=== PATIENT | male | born 1985 | race American Indian/Alaskan Native ===

== ENCOUNTER 2017-07-07 01:22 | Emergency (ER) | payer OTHER ==
[2017-07-07 02:11] VITALS: BP 109/88
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
== END 2017-07-07 05:35 | disposition home or self-care (01) ==
LOC: ED 01:22
DX: R22.31 Localized swelling, mass and lump, right upper limb (principal)
CPT/HCPCS: 99283

== ENCOUNTER 2018-08-15 23:35 | Emergency (ER) | payer OTHER ==
[2018-08-15 23:48] VITALS: BP 138/84
[2018-08-16] MEDS ORDERED: PEPCID PO ONE (01:57)
[2018-08-16] MEDS ORDERED: BENADRYL PO ONE (01:57)
[2018-08-16] MEDS ORDERED: DELTASONE PO ONE (01:57)
--- NOTE | 2018-08-16 02:20 | Emergency Department Report ---
HPI - General Chief Complaint: Allergic Reaction Time Seen by Provider: 08/16/18 01:57 - HPI HPI: Patient is a 32-year-old -English male who presents for a reaction studies rash and bilateral upper extremities after abdominal exposure to bushes on 2 days ago subjective itching red raised papules present fever no chills no weeping noted at this time symptoms are exacerbated by scratching symptoms are relieved by scratching there is no broken skin or shortness of breath no wheezing no nausea vomiting no headache no lightheadedness no dizziness ED Past Medical Hx - Past Medical History Previous Medical History?: No - Surgical History Past Surgical History?: Yes Additional Surgical History: Right Rib removed and used in the bridge of his nose as a child - Social History Smoking Status: Never Smoker Substance Use Type: Marijuana - Medications Home Medications: Home Medications Medication Instructions Recorded Confirmed Last Taken Type Ibuprofen [Motrin] 600 mg PO Q8H PRN #25 tablet 07/07/17 Unknown Rx Famotidine [Pepcid] 20 mg PO BID 7 Days #14 tablet 08/16/18 Unknown Rx Triamcinolone Aceton 0.1% (Nf) 1 applic TP BID #1 tube 08/16/18 Unknown Rx [Kenalog (NF)] diphenhydrAMINE [Benadryl CAP] 25 mg PO Q6HR PRN #30 capsule 08/16/18 Unknown Rx predniSONE [Deltasone] 40 mg PO QDAY 5 Days #10 tab 08/16/18 Unknown Rx ED Review of Systems ROS: Stated complaint: ALLERGIC REACTION Other details as noted in HPI Constitutional: denies: chills, fever Eyes: denies: eye pain, eye discharge, vision change ENT: denies: ear pain, throat pain Respiratory: denies: cough, shortness of breath, wheezing Cardiovascular: denies: chest pain, palpitations Endocrine: no symptoms reported Gastrointestinal: denies: abdominal pain, nausea, diarrhea Genitourinary: denies: urgency, dysuria Musculoskeletal: denies: back pain, joint swelling, arthralgia Skin: rash (trunk and bilat upper extrem ) Neurological: denies: headache, weakness, paresthesias Psychiatric: denies: anxiety, depression Hematological/Lymphatic: denies: easy bleeding, easy bruising Physical Exam - Physical Exam Vital Signs: Vital Signs 08/15/18 23:46 Temperature 98.1 F Pulse Rate 70 Respiratory 18 Rate Blood Pressure 138/84 O2 Sat by Pulse 100 Oximetry General: Patient with no respiratory distress , no secondary muscle use of breathing , respirations even and nonlabored, patient appears well and nontoxic Physical Exam: Red raised papules and urticaria no vomiting no fever lungs are clear bilater ally no wheezing in width. There is no stridor ED Course Vital Signs 08/15/18 23:46 Temperature 98.1 F Pulse Rate 70 Respiratory 18 Rate Blood Pressure 138/84 O2 Sat by Pulse 100 Oximetry ED Medical Decision Making - Medical Decision Making this is an allergic reaction contact dermatitis, plan , benadryl , pepcid, prednisone, triamcinolone oint, pt will follow up with pcp in 2-3 days return to ed if symptsoms worsen. pt verbalized agreement and understanding of discharge plan. Critical care attestation.: If time is entered above; I have spent that time in minutes in the direct care of this critically ill patient, excluding procedure time. ED Disposition Clinical Impression: Contact dermatitis Qualifiers: Contact dermatitis type: allergic Contact dermatitis trigger: unspecified trigger Qualified Code(s): L23.9 - Allergic contact dermatitis, unspecified cause Allergic reaction Qualifiers: Encounter type: initial encounter Qualified Code(s): T78.40XA - Allergy, unspecified, initial encounter Disposition: - TO HOME OR SELFCARE Is pt being admited?: No Does the pt Need Aspirin: No Condition: Stable Instructions: Allergies (ED), Urticaria (ED) Prescriptions: diphenhydrAMINE [Benadryl CAP] 25 mg PO Q6HR PRN #30 capsule PRN Reason: allergies predniSONE [Deltasone] 40 mg PO QDAY 5 Days #10 tab Triamcinolone Aceton 0.1% (Nf) [Kenalog (NF)] 1 applic TP BID #1 tube Famotidine [Pepcid] 20 mg PO BID 7 Days #14 tablet Referrals: [facility] [Outside] - 3-5 Days Forms: Work/School Release Form(ED) Time of Disposition: 02:27
== END 2018-08-16 02:40 | disposition home or self-care (01) ==
LOC: ED 23:35
DX: T78.40XA Allergy, unspecified, initial encounter (principal); L23.9 Allergic contact dermatitis, unspecified cause; X58.XXXA Exposure to other specified factors, initial encounter
CPT/HCPCS: 99282; J7512